=== PATIENT | female | born 1980 | race Asian ===

== ENCOUNTER 2025-01-22 19:03 | Emergency (ER) | payer OTHER ==
[2025-01-22 19:23] LABS: Absolute Monocytes 0.4 K/uL (0.1-1.3); Absolute Neutrophil 2.5 K/uL (1.8-8.0); Basophils % 0.4 % (0-1.3); Hematocrit 32.2 % (36.0-45.0); Hemoglobin 10.4 g/dL (12.0-15.0); Lymphocytes % 25.5 % (15.3-44.8); MCH 24.7 pg (27.0-35.0); MCHC 32.2 g/dL (32.0-36.0); MCV 76.7 fL (80-100); MPV 7.2 fL (7.6-11.3); Monocytes % 10.7 % (3.3-12.3); Neutrophils % 62.4 % (41.7-73.7); Nucleated Red Blood Cells % 0.1 % (0-0); Platelets 348 thou/uL (152-406); RBC Red Blood Cell Count 4.21 M/uL (3.86-4.86); Red Cell Distribution Width 15.8 % (12.1-15.2)
[2025-01-22 19:39] LABS: PTT, Activated Partial Thromb 29.7 SECONDS (27.2-37.4); Protime INR 0.87
[2025-01-22 19:44] LABS: AST/SGOT 15 U/L (15-37); Albumin 3.4 g/dL (3.4-5.0); Albumin/Globulin Ratio 0.8 (1.1-1.8); Alkaline Phosphatase 56 U/L (45-117); Anion Gap 10.2 mEq/L (5.0-15.0); BUN Blood Urea Nitrogen 7 mg/dL (7-18); Bicarbonate 27 mEq/L (21-32); Bilirubin Total 0.2 mg/dL (0.2-1.0); Globulin 4.2 g/dL (2.3-3.5); Glomerular Filtration Rate 96 ml/min (=/>90); Glucose Level 100 mg/dL (74-106); Potassium 3.2 mEq/L (3.5-5.1); Protein, Total 7.6 g/dL (6.4-8.2); Sodium Level 140 mEq/L (136-145)
[2025-01-22 19:46] LABS: ALT/SGPT < 14 U/L (13-56); Bilirubin Direct < 0.2 mg/dL (0-0.2)
[2025-01-23] MEDS ORDERED: MAGNESIUM SULFATE 1 gm IVPB 1 GM/100 ML BAG IV ONE (00:38)
[2025-01-23 00:58] LABS: Barbiturates NEGATIVE (NEGATIVE); Benzodiazepines NEGATIVE (NEGATIVE); Cocaine NEGATIVE (NEGATIVE); METHAMPHETAM NEGATIVE (NEGATIVE); Methadone NEGATIVE (NEGATIVE); Opiates NEGATIVE (NEGATIVE); Phencyclidine NEGATIVE (NEGATIVE); THC Cannibis NEGATIVE (NEGATIVE)
[2025-01-23] MEDS ORDERED: POTASSIUM 25 MEQ EFFERV TAB ONE (02:05)
--- NOTE | 2025-01-23 03:22 | EDPHYS ---
Physician Documentation [facility] Name: Cheo Diallo Age: 44 yrs Sex: Female : 1980 Arrival Date: 01/22/2025 Time: 19:03 Bed 14 Private MD: ED Physician Yovani Hart HPI: 01/22 19:15 This 44 yrs old Female presents to ER via Unassigned with complaints of Overdose. rt 19:15 Patient presents to the ED with suicidal ideation and intentional overdose of rt trazodone, reportedly 4 to 6 tablets. She reports feeling drowsy, somewhat dizzy. Denies other acute complaints at this time, symptoms are moderate severity, no other aggravating alleviating factors.. 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 - Infectious Disease History:: Denies. - Family history:: not pertinent. - Social history:: Smoking status: Patient denies any tobacco usage or history of. ROS: 19:15 Constitutional: Negative for fever, chills, and weight loss, Cardiovascular: Negative rt for chest pain, palpitations, and edema, Respiratory: Negative for shortness of breath, cough, wheezing, and pleuritic chest pain, Abdomen/GI: Negative for abdominal pain, nausea, vomiting, diarrhea, and constipation, MS/Extremity: Negative for injury and deformity, Skin: Negative for injury, rash, and discoloration, 19:15 Neuro: Positive for dizziness, Negative for loss of consciousness, 19:15 Psych: Positive for suicide gesture, suicidal ideation, Exam: 19:15 Constitutional: This is a well developed, well nourished patient who is awake, alert, rt and in no acute distress. Head/Face: Normocephalic, atraumatic. Chest/axilla: Normal chest wall appearance and motion. Nontender with no deformity. No lesions are appreciated. Cardiovascular: Regular rate and rhythm with a normal S1 and S2. No gallops, murmurs, or rubs. Normal PMI, no JVD. No pulse deficits. Respiratory: Lungs have equal breath sounds bilaterally, clear to auscultation and percussion. No rales, rhonchi or wheezes noted. No increased work of breathing, no retractions or nasal flaring. Abdomen/GI: Soft, non-tender, with normal bowel sounds. No distension or tympany. No guarding or rebound. No evidence of tenderness throughout. Skin: Warm, dry with normal turgor. Normal color with no rashes, no lesions, and no evidence of cellulitis. MS/ Extremity: Pulses equal, no cyanosis. Neurovascular intact. Full, normal range of motion. Neuro: Awake and alert, GCS 15, oriented to person, place, time, and situation. Cranial nerves II-XII grossly intact. Motor strength 5/5 in all extremities. Sensory grossly intact. Cerebellar exam normal. Normal gait. 19:20 ECG was reviewed by the Attending Physician. rt 01/23 03:26 ECG was reviewed by the Attending Physician. rt Vital Signs: 01/22 19:05 BP 152 / 99; Pulse 79; Resp 13; Temp 98.1; Pulse Ox 97% ; Weight 49.9 kg; Height 4 ft. vc1 11 in. ; Pain 10/10; 19:15 BP 137 / 92; Pulse 80; Resp 19; Pulse Ox 98% ; vc1 20:05 BP 142 / 95; Pulse 67; Resp 20; Pulse Ox 100% on R/A; kj2 21:24 BP 110 / 74; Pulse 60; Resp 16; Pulse Ox 98% ; mm11 22:00 BP 98 / 66; Pulse 69; Resp 18; Pulse Ox 100% on R/A; kj2 23:00 BP 102 / 74; Pulse 69; Resp 16; Pulse Ox 98% on R/A; kj2 01/23 00:00 BP 118 / 76; Pulse 64; Resp 13; Pulse Ox 97% ; al5 01:00 BP 111 / 63; Pulse 64; Resp 16; Pulse Ox 99% ; al5 02:00 BP 103 / 61; Pulse 61; Resp 15; Pulse Ox 97% ; al5 03:00 BP 134 / 82; Pulse 66; Resp 16; Pulse Ox 97% ; al5 04:00 BP 120 / 75; Pulse 68; Resp 16; Pulse Ox 99% ; al5 01/22 19:05 Body Mass Index 22.22 (49.90 kg, 149.86 cm) vc1 01/22 19:05 Pain Scale: Adult vc1 MDM: 01/22 19:05 Medical Screening Exam initiated rt 01/23 03:26 Differential diagnosis: Intentional overdose, suicide ideation. Data reviewed: vital rt signs, nurses notes, lab test result(s), EKG. Consideration of Admission/Observation Patient requires transfer to psychiatric facilities, is medically cleared for transport. I considered the following discharge prescriptions or medication management in the emergency department Medications were administered in the Emergency Department. See MAR. Care significantly affected by the following chronic conditions: MDD. Counseling: I had a detailed discussion with the patient and/or guardian regarding the historical points, exam findings, and any diagnostic results supporting the discharge/admit diagnosis, lab results, the need to transfer to another facility. Response to treatment: the patient's symptoms have mildly improved after treatment. 01/22 19:06 Order name: Acetaminophen; Complete Time: 00:37 rt 01/22 19:06 Order name: Basic Metabolic Panel; Complete Time: 00:37 rt 01/22 19:06 Order name: CBC with Diff; Complete Time: 00:37 rt 01/22 19:06 Order name: ETOH Level; Complete Time: 00:37 rt 01/22 19:06 Order name: Hepatic Function; Complete Time: 00:37 rt 01/22 19:06 Order name: PT-INR; Complete Time: 00:37 rt 01/22 19:06 Order name: Ptt, Activated; Complete Time: 00:37 rt 01/22 19:06 Order name: Salicylate; Complete Time: 00:37 rt 01/22 19:06 Order name: Urine Drug Screen; Complete Time: 01:01 rt 01/22 19:09 Order name: Magnesium; Complete Time: 00:37 rt 01/22 19:06 Order name: EKG - Nurse/Tech; Complete Time: 20:03 rt 01/22 19:06 Order name: IV Saline Lock; Complete Time: 20:03 rt 01/22 19:06 Order name: Labs collected and sent; Complete Time: 20:03 rt 01/22 19:06 Order name: Suicide Precautions; Complete Time: 20:03 rt 01/22 19:06 Order name: Suicide Screening (Erlinda); Complete Time: 20:03 rt EC/04 19:20 Rate is 71 beats/min. Rhythm is regular, Normal Sinus Rhythm with No ectopy. QRS [place] rt is Normal. NE interval is normal. QRS interval is normal. QT interval is normal at 486 msec. No Q waves. No ST changes noted. Interpreted by me. 01/23 03:26 Rate is 72 beats/min. Rhythm is regular, Normal Sinus Rhythm with No ectopy. QRS [place] rt is Normal. NE interval is normal. QRS interval is normal. QT interval is normal at 466 msec. No Q waves. T waves are Normal. No ST changes noted. Interpreted by me. Administered Medications: 00:44 Drug: Magnesium Sulfate IVPB 1 grams IVPB once over 1 hrs Route: IVPB; Infused Over: 1 al5 hrs; Site: right antecubital; 04:15 Follow up: Response: No adverse reaction; IV Status: Completed infusion; IV Intake: al5 100ml 02:07 Drug: Potassium PO Effervescent Tablet 50 mEq PO once; dissolve in 4 ounces of water or al5 juice Route: PO; 04:15 Follow up: Response: No adverse reaction al5 Disposition Summary: 01/23/25 03:21 Transfer Ordered Notes: Transfer Location: Psych Facility rt Reason: Higher level of care rt Condition: Stable rt Problem: new rt Symptoms: have improved rt Accepting Physician: (01/23/25 05:43) al5 Diagnosis - Suicidal ideation rt - Intentional overdose of trazodone rt Forms: - Medication Reconciliation Form rt - SBAR form rt Signatures: Dispatcher [employer] EDNJ Aleshia Alatorre RN RN vc1 Yovani Hart MD MD rt Kiesha Washington RN RN al5 Corrections: (The following items were deleted from the chart) 01/22 19:06 19:06 ACETAMINOPHEN+C.LAB.BRZ ordered. EDMS EDMS 19:06 19:06 BASIC METABOLIC PANEL+C.LAB.BRZ ordered. EDMS EDMS 19:06 19:06 CBC+H.LAB.BRZ ordered. EDMS EDMS 19:06 19:06 ETHANOL+C.LAB.BRZ ordered. EDMS EDMS 19:06 19:06 HEPATIC FUNCTION+C.LAB.BRZ ordered. EDMS EDMS 19:06 19:06 PROTIME (+INR)+COAG.LAB.BRZ ordered. EDMS EDMS 19:06 PTT, ACTIVATED+COAG.LAB.BRZ ordered. EDMS EDMS : 19:06 SALICYLATE+C.LAB.BRZ ordered. EDMS EDMS : 19:06 URINE DRUG SCREEN+UC.LAB.BRZ ordered. EDMS EDMS : 19:09 MAGNESIUM+C.LAB.BRZ ordered. EDMS EDMS 01/23 05:43 03:21 rt al5
--- NOTE | 2025-01-23 03:22 | ER ---
Nurse's Notes [facility] Name: Cheo Diallo Age: 44 yrs Sex: Female : 1980 Arrival Date: 01/22/2025 Time: 19:03 Bed 14 Private MD: Diagnosis: Suicidal ideation;Intentional overdose of trazodone Presentation: 01/22 19:05 Chief complaint: EMS states: Took 4-5 50mg trazodone at around 1800 to sleep. vc1 stated patient was having suicidal thoughts. 19:05 Coronavirus screen: Client denies travel out of the [place] in the last 14 days. At this vc1 time, the client does not indicate any symptoms associated with coronavirus-19. Ebola Screen: Patient negative for fever greater than or equal to 101.5 degrees Fahrenheit, and additional compatible Ebola Virus Disease symptoms Patient denies exposure to infectious person. Patient denies travel to an Ebola-affected area in the 21 days before illness onset. No symptoms or risks identified at this time. Initial Sepsis Screen: Does the patient meet any 2 criteria? No. Patient's initial sepsis screen is negative. Does the patient have a suspected source of infection? No. Patient's initial sepsis screen is negative. Risk Assessment: Do you want to hurt yourself or someone else? Patient reports desire/thoughts of hurting themselves or someone else. Provider notified. Onset of symptoms was January 22, 2025 at 18:00. Care prior to arrival: None. Activity prior to arrival: None. Mechanism of Injury: No Mechanism of Injury. Transition of care: patient was not received from another setting of care. 19:05 Method Of Arrival: EMS: [facility] vc1 19:05 Acuity: SHANI 2 vc1 19:05 Note Sachi from Poison control case # [id number] states may cause drowsiness, agitation, vc1 sedation, seizures, dysrhythmias. Suggest tox labs, mg level, EKG watch for QT prolongation, cardiac monitoring and seizure precautions. Observe for 6 hours. Triage Assessment: 19:05 General: Appears in no apparent distress. slender, well groomed, well developed, well vc1 nourished, Behavior is cooperative, crying, flat, quiet. Pain: Denies pain. EENT: No deficits noted. No signs and/or symptoms were reported regarding the EENT system. Neuro: Cool Agitation-Sedation Scale (RASS): -1 Drowsy Level of Consciousness is awake, alert, obeys commands, Oriented to person, place, time, situation, Appropriate for age. Cardiovascular: Heart tones S1 S2 present Capillary refill < 3 seconds Patient's skin is warm and dry. Rhythm is Prolonged QT. Respiratory: Airway is patent Respiratory effort is even, unlabored, Respiratory pattern is regular, symmetrical, Breath sounds are clear bilaterally. GI: Abdomen is flat, non-distended, Patient currently denies nausea, pain. : No deficits noted. No signs and/or symptoms were reported regarding the genitourinary system. Derm: Skin is intact, is healthy with good turgor, Skin is dry, Skin is normal, Skin temperature is cool. Musculoskeletal: Circulation, motion, and sensation intact. Range of motion: intact in all extremities. 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 - Infectious Disease History:: Denies. - Family history:: not pertinent. - Social history:: Smoking status: Patient denies any tobacco usage or history of. Screenin:05 [facility] ED Fall Risk Assessment (Adult) History of falling in the last 3 months, kj2 including since admission No falls in past 3 months (0 pts) Confusion or Disorientation No (0 pts) Intoxicated or Sedated No (0 pts) Impaired Gait No (0 pts) Mobility Assist Device Used No (0 pt) Altered Elimination No (0 pt) Score/Fall Risk Level 0 - 2 = Low Risk Maintained a safe environment, Hourly rounding (assess needs \\T\\ fall precautionary measures) done. Abuse screen: Denies threats or abuse. Denies injuries from another. Nutritional screening: No deficits noted. Tuberculosis screening: No symptoms or risk factors identified. Assessment: 19:05 General: Appears in no apparent distress. Behavior is calm, cooperative. Pain: Denies kj2 pain. Neuro: Level of Consciousness is awake, Oriented to person, place, time, situation. Cardiovascular: Patient's skin is warm and dry. Respiratory: Airway is patent Respiratory effort is even, unlabored. GI: No signs and/or symptoms were reported involving the gastrointestinal system. : No signs and/or symptoms were reported regarding the genitourinary system. 20:02 Reassessment: Patient appears in no apparent distress at this time. Patient and/or kj2 family updated on plan of care and expected duration. Pain level reassessed. Patient is alert, oriented x 3, equal unlabored respirations, skin warm/dry/pink. 21:00 Reassessment: Patient appears in no apparent distress at this time. Patient and/or kj2 family updated on plan of care and expected duration. Pain level reassessed. Patient is alert, oriented x 3, equal unlabored respirations, skin warm/dry/pink. 22:00 Reassessment: Patient appears in no apparent distress at this time. Patient and/or kj2 family updated on plan of care and expected duration. Pain level reassessed. Patient is alert, oriented x 3, equal unlabored respirations, skin warm/dry/pink. 23:00 Reassessment: Patient appears in no apparent distress at this time. Patient and/or kj2 family updated on plan of care and expected duration. Pain level reassessed. Patient is alert, oriented x 3, equal unlabored respirations, skin warm/dry/pink. 23:58 General: Appears in no apparent distress. comfortable, Behavior is calm, cooperative. al5 Pain: Denies pain. Neuro: Level of Consciousness is awake, alert, obeys commands, Oriented to person, place, time, situation. Cardiovascular: Capillary refill < 3 seconds Patient's skin is warm and dry. Rhythm is sinus rhythm. Respiratory: Airway is patent Respiratory effort is even, unlabored, Respiratory pattern is regular, symmetrical. GI: No signs and/or symptoms were reported involving the gastrointestinal system. : No signs and/or symptoms were reported regarding the genitourinary system. EENT: No signs and/or symptoms were reported regarding the EENT system. Derm: Skin is intact, is healthy with good turgor, Skin is pink, warm \\T\\ dry. normal. Musculoskeletal: No signs and/or symptoms reported regarding the musculoskeletal system. 01/23 00:59 Reassessment: Patient appears in no apparent distress at this time. No changes from al5 previously documented assessment. Patient and/or family updated on plan of care and expected duration. Pain level reassessed. Patient is alert, oriented x 3, equal unlabored respirations, skin warm/dry/pink. 02:20 Reassessment: Patient appears in no apparent distress at this time. No changes from al5 previously documented assessment. Patient and/or family updated on plan of care and expected duration. Pain level reassessed. Patient is alert, oriented x 3, equal unlabored respirations, skin warm/dry/pink. spoke with patient about plan of care. notified patient that the plan is to transfer her to [facility] for inpatient psychiatry and treatment. patient demonstrated understanding by nodding, agreeing and saying "okay". 02:42 Reassessment: at bedside. explained to patient plan of care and that al5 the patient has an emergency prison order, patient verbalized understanding. 04:17 Reassessment: gave report to eric ruiz at [facility], states they will accept her al5 once a bed is available after 0800. 04:38 Reassessment: Patient appears in no apparent distress at this time. No changes from al5 previously documented assessment. Patient and/or family updated on plan of care and expected duration. Pain level reassessed. Patient is alert, oriented x 3, equal unlabored respirations, skin warm/dry/pink. 04:56 Reassessment: gave report to eric pruitt at [facility], able to accept at 0600. al5 Overdose: 01/22 19:05 [place] Suicide Severity Screening: "In the past month, have you wished you were kj2 or wished you could go to sleep and not wake up?" Patient responds "yes." Based off client's responses, additional C-SSRS screening questions required. "In the past month, have you actually had any thoughts of killing yourself?" Patient responds "yes." Based off client's responses, additional C-SSRS screening questions required. "In your lifetime, have you ever done anything, started to do anything, or prepared to do anything to end your life?" Patient responds "yes." Patient reports suicidal intent within 3 past months. Patient took trazadone 50mg, 4-5 pills. Overdose occurred 1-2 hours ago. Vital Signs: 19:05 BP 152 / 99; Pulse 79; Resp 13; Temp 98.1; Pulse Ox 97% ; Weight 49.9 kg; Height 4 ft. vc1 11 in. ; Pain 10/10; 19:15 BP 137 / 92; Pulse 80; Resp 19; Pulse Ox 98% ; vc1 20:05 BP 142 / 95; Pulse 67; Resp 20; Pulse Ox 100% on R/A; kj2 21:24 BP 110 / 74; Pulse 60; Resp 16; Pulse Ox 98% ; mm11 22:00 BP 98 / 66; Pulse 69; Resp 18; Pulse Ox 100% on R/A; kj2 23:00 BP 102 / 74; Pulse 69; Resp 16; Pulse Ox 98% on R/A; kj2 01/23 00:00 BP 118 / 76; Pulse 64; Resp 13; Pulse Ox 97% ; al5 01:00 BP 111 / 63; Pulse 64; Resp 16; Pulse Ox 99% ; al5 02:00 BP 103 / 61; Pulse 61; Resp 15; Pulse Ox 97% ; al5 03:00 BP 134 / 82; Pulse 66; Resp 16; Pulse Ox 97% ; al5 04:00 BP 120 / 75; Pulse 68; Resp 16; Pulse Ox 99% ; al5 01/22 19:05 Body Mass Index 22.22 (49.90 kg, 149.86 cm) vc1 05 19:05 Pain Scale: Adult vc1 ED Course: 01/22 19:05 Patient arrived in ED. cm10 19:05 Yovani Hart MD is Attending Physician. rt 19:05 Arm band placed on right wrist. vc1 19:05 Patient has correct armband on for positive identification. Bed in low position. kj2 Provided Education on: call light. 19:16 Triage completed. vc1 19:54 Julienne Murdock RN is Primary Nurse. kj2 23:20 Report given to Kiesha Bond RN. kj2 23:59 No provider procedures requiring assistance completed. al5 01/23 00:00 Maintain EMS IV. Dressing intact. Good blood return noted. Site clean \\T\\ dry. Gauge \\T\\ al 5 site: 20g rac. Flushed with 10 mL NS. 00:12 Urine Drug Screen Sent. mm11 03:46 Faxed clinical'sMartita rivers 04:59 0450 Admin approval to [facility] Dr. Summer Kincaid admin [facility]. called [facility] for transfer talked to Magali. 05:42 IV discontinued, intact, bleeding controlled, No redness/swelling at site. Pressure al5 dressing applied. 06:31 called [facility] Chacon to cancel transfer talked to Kirill. sp Administered Medications: 00:44 Drug: Magnesium Sulfate IVPB 1 grams IVPB once over 1 hrs Route: IVPB; Infused Over: 1 al5 hrs; Site: right antecubital; 04:15 Follow up: Response: No adverse reaction; IV Status: Completed infusion; IV Intake: al5 100ml 02:07 Drug: Potassium PO Effervescent Tablet 50 mEq PO once; dissolve in 4 ounces of water or al5 juice Route: PO; 04:15 Follow up: Response: No adverse reaction al5 Medication: 01/22 19:05 VIS not applicable for this client. kj2 Intake: 01/23 04:15 IV: 100ml; Total: 100ml. al5 Outcome: 03:21 ER care complete, transfer ordered by . rt 05:42 Transferred by [facility]. Note: [facility] al5 05:42 Condition: stable 05:42 Instructed on the need for transfer, 05:43 Patient left the ED. al5 Signatures: Genesis Son Vanessa RN RN vc1 Yovani Hart MD MD rt Nadine Pitts RN RN cm10 Kiesha Washington RN RN al5 Julienne Murdock RN RN kj2 keisha sr mm11 Corrections: (The following items were deleted from the chart) 01/22 19:19 19:19 Arm band placed on right wrist. vc1 vc1
[2025-01-23 05:54] VITALS: TEMP 98.1
[2025-01-23 06:10] VITALS: BP 120/75; O2SAT 99
--- NOTE | 2025-01-23 12:03 | EKG ---
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
--- NOTE | 2025-01-26 11:56 | EKG ---
Test Date: 2025-01-22 Test Time: 19:16:47 [place] Sewer: MIGUEL MEASUREMENT RESULTS: Intervals: Rate: 71 [place]: 160 QRSD: 86 QT: 448 QTc: 486 [place]: P: 53 [place]: 160 QRS: 68 T: 46 INTERPRETIVE STATEMENTS: Normal sinus rhythm T wave abnormality, consider anterior ischemia Prolonged QT Abnormal ECG No previous ECG available for comparison Electronically Signed On 01-26-25 11:48:28 CDT by Perez Summers
--- NOTE | 2025-01-26 11:56 | EKG ---
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
--- NOTE | 2025-01-26 11:56 | EKG ---
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
== END 2025-01-23 05:43 ==
LOC: ER 19:03
DX: T43.212A Poisoning by selective serotonin and norepinephrine reuptake inhibitors, intentional self-harm, initial encounter (principal); F32.A Depression, unspecified
CPT/HCPCS: 96365; 93005 ×4; 85025; 80048; 36415; 83735; 85610; 80076; 85730; 80307; 99285; 96366; 80143; 80179; 82077; J3475